=== PATIENT | female | born 1955 | race Caucasian/White ===

== ENCOUNTER → 2021-07-12 | Outpatient (CLI) | payer MEDICARE, OTHER | LOC: KOH-I 10:39 | DX: Z01.818 Encounter for other preprocedural examination (principal); M43.26 Fusion of spine, lumbar region; M43.16 Spondylolisthesis, lumbar region; M51.36 Other intervertebral disc degeneration, lumbar region | CPT/HCPCS: 72131 ==

== ENCOUNTER → 2021-09-07 | Outpatient (CLI) | payer MEDICARE, OTHER ==
[~2021-09-07] MED LIST: ADIPEX-P37.5 MG PO; AMLODIPINE BESY10 MG PO; ATORVASTATIN CA40 MG PO; CELEBREX 100MG100 MG PO; HYDROCHLOROTHIA25 MG PO; IBU600 MG PO; LOSARTAN POTAS100 MG PO; ROPINIROLE HC0.25 MG PO; TAMOXIFEN CITRA20 MG PO
[2021-09-07 11:50] LABS: RED BLOOD COUNT 4.99 M/UL (4.00-5.10); WHITE BLOOD COUNT 6.5 K/UL (4.5-11.0)
[2021-09-07 12:24] LABS: BUN/CREATININE RATIO 14 (0-10)
== END ==
LOC: OPSV2 10:56 → EDSTATUS 11:00 → OPSV2 11:00
PROVIDERS: Orthopaedic Surgery
DX: Z01.818 Encounter for other preprocedural examination (principal); M47.26 Other spondylosis with radiculopathy, lumbar region; I10 Essential (primary) hypertension; E78.00 Pure hypercholesterolemia, unspecified
CPT/HCPCS: 80048; 81001; 85027; 85610; 85730; 87081; 93005

== ENCOUNTER → 2021-09-20 | Outpatient (CLI) | payer MEDICARE, OTHER ==
[~2021-09-20] MED LIST changes: +ACETIC ACID15 ML EARBOTH; +POTASSIUM CHLO10 ME1 PO
[2021-09-20 12:08] LABS: BUN/CREATININE RATIO 18 (0-10)
== END ==
LOC: LAB 10:31
PROVIDERS: Orthopaedic Surgery
DX: Z01.812 Encounter for preprocedural laboratory examination (principal); I10 Essential (primary) hypertension; E78.00 Pure hypercholesterolemia, unspecified
CPT/HCPCS: 36415; 80048; 86850; 86900; 86901

== ENCOUNTER 2021-09-21 05:35 | Inpatient (IN) | payer MEDICARE, OTHER ==
[~2021-09-21] VITALS: Ht 165.1 cm; Wt 85.3 kg
[~2021-09-21 05:35] MED LIST changes: -ACETIC ACID15 ML EARBOTH; -CELEBREX 100MG100 MG PO; -POTASSIUM CHLO10 ME1 PO
[2021-09-21] MEDS ORDERED: POTASSIUM CHLO10 ME1 PO (06:45)
[2021-09-21] MEDS ORDERED: ACETIC ACID15 ML EARBOTH (06:46)
[2021-09-21 11:24] LABS: HEMOGLOBIN 11.7 gm/dl (12.3-15.3)
[2021-09-21 15:39] LABS: HEMOGLOBIN 11.6 gm/dl (12.3-15.3); RED BLOOD COUNT 4.12 M/UL (4.00-5.10); WHITE BLOOD COUNT 13.7 K/UL (4.5-11.0)
[2021-09-22 04:50] LABS: RED BLOOD COUNT 3.62 M/UL (4.00-5.10); WHITE BLOOD COUNT 12.8 K/UL (4.5-11.0)
[2021-09-22 05:11] LABS: BUN/CREATININE RATIO 21 (0-10)
[2021-09-22] MEDS ORDERED: ROXICODONE5 MG PO (12:22)
[2021-09-22] MEDS ORDERED: CELEBREX 100MG100 MG PO (13:52)
[2021-09-23 05:10] LABS: HEMOGLOBIN 9.1 gm/dl (12.3-15.3); RED BLOOD COUNT 3.33 M/UL (4.00-5.10); WHITE BLOOD COUNT 11.7 K/UL (4.5-11.0)
[2021-09-23 05:58] LABS: BUN/CREATININE RATIO 16 (0-10)
[2021-09-24 06:50] LABS: HEMOGLOBIN 8.7 gm/dl (12.3-15.3); RED BLOOD COUNT 3.13 M/UL (4.00-5.10)
[2021-09-24 06:51] LABS: WHITE BLOOD COUNT 7.6 K/UL (4.5-11.0)
[2021-09-24 07:14] LABS: BUN/CREATININE RATIO 11 (0-10)
--- NOTE | 2021-09-24 09:01 | NUR ---
PT HAS X2 HEMOVACS. WHILE RECEIVING CARE, ONE HEMOVAC PULLED OUT OF THE BODY. UPON ASSESSMENT BY THE NURSE, THE OTHER HEMOVAC IS IN PLOACE AND UNDER NEGATIVE PRESSURE. APPROX 5 ML WAS MEASURED FROM THE HEMOVAC THAT CAME LOOSE.
[2021-09-25 06:47] LABS: RED BLOOD COUNT 3.56 M/UL (4.00-5.10); WHITE BLOOD COUNT 9.2 K/UL (4.5-11.0)
[2021-09-25 07:13] LABS: BUN/CREATININE RATIO 11 (0-10)
== END 2021-09-25 12:02 | disposition home or self-care (01) | DRG 454 ==
LOC: OR 05:35 → CCU 17:21 → M/S 09-22 20:06
PROVIDERS: ADMIT Orthopaedic Surgery
PROC: 0SG0071 Fusion of Lumbar Vertebral Joint with Autologous Tissue Substitute, Posterior Approach, Posterior Column, Open Approach (ICD-10-PCS; 2021-09-21)
PROC: 01NB0ZZ Release Lumbar Nerve, Open Approach (ICD-10-PCS; 2021-09-21)
PROC: 0ST20ZZ Resection of Lumbar Vertebral Disc, Open Approach (ICD-10-PCS; 2021-09-21)
PROC: 0SG3071 Fusion of Lumbosacral Joint with Autologous Tissue Substitute, Posterior Approach, Posterior Column, Open Approach (ICD-10-PCS; principal; 2021-09-21 07:30)
PROC: 0SG00AJ Fusion of Lumbar Vertebral Joint with Interbody Fusion Device, Posterior Approach, Anterior Column, Open Approach (ICD-10-PCS; 2021-09-21 07:30)
PROC: 30233N1 Transfusion of Nonautologous Red Blood Cells into Peripheral Vein, Percutaneous Approach (ICD-10-PCS; 2021-09-24)
DX: M47.896 Other spondylosis, lumbar region (principal); D62 Acute posthemorrhagic anemia; M43.16 Spondylolisthesis, lumbar region; M48.061 Spinal stenosis, lumbar region without neurogenic claudication; Z20.822 Contact with and (suspected) exposure to COVID-19; I10 Essential (primary) hypertension; M79.7 Fibromyalgia; E78.5 Hyperlipidemia, unspecified; K21.9 Gastro-esophageal reflux disease without esophagitis; J42 Unspecified chronic bronchitis; G89.29 Other chronic pain; I45.10 Unspecified right bundle-branch block; F41.9 Anxiety disorder, unspecified; G96.198 Other disorders of meninges, not elsewhere classified; G25.81 Restless legs syndrome; M54.16 Radiculopathy, lumbar region; C50.919 Malignant neoplasm of unspecified site of unspecified female breast; Z98.1 Arthrodesis status; Z98.891 History of uterine scar from previous surgery; Z90.49 Acquired absence of other specified parts of digestive tract; Z90.710 Acquired absence of both cervix and uterus; Z83.6 Family history of other diseases of the respiratory system; Z82.49 Family history of ischemic heart disease and other diseases of the circulatory system
CPT/HCPCS: 36415; 36430; 72100; 72110; 76000; 80048; 83735; 84132; 85007; 85014; 85018; 85027; 86850; 86900; 86901; 86920; 97116-GP-CQ; 97161; 97165; 97530; 97530-GP-CQ; 97535; C1713; C1762; J0690; J1100; J1170; J1644; J1885; J2001; J2250; J2370; J2405; J2704; J3010; J3370; J7030; J7040; J7120; P9016; P9045; U0003